=== PATIENT | male | born 1970 | race Hispanic/Latino ===

== ENCOUNTER 2019-09-09 21:20 | Emergency (ER) | payer OTHER, SELFPAY ==
[2019-09-10 14:02] LABS: SARS-CoV-2 MS2 Positive; SARS-CoV-2 N Gene Positive; SARS-CoV-2 S Gene Positive; SARS-CoV-2 orf1ab Positive
== END 2019-09-09 21:58 | disposition home or self-care (01) ==
LOC: ERS 21:20
DX: U07.1 COVID-19 (principal); R05 Cough; R09.81 Nasal congestion; R52 Pain, unspecified; R50.9 Fever, unspecified; E11.9 Type 2 diabetes mellitus without complications; I10 Essential (primary) hypertension
CPT/HCPCS: 87635; 87804; 99283; U0003

== ENCOUNTER 2019-09-30 14:54 | Emergency (ER) | payer OTHER, SELFPAY ==
[2019-10-01 15:39] LABS: SARS-CoV-2 MS2 Positive; SARS-CoV-2 N Gene Positive; SARS-CoV-2 S Gene Positive; SARS-CoV-2 orf1ab Positive
== END 2019-09-30 15:42 | disposition home or self-care (01) ==
LOC: ERS 14:54
DX: U07.1 COVID-19 (principal); E11.9 Type 2 diabetes mellitus without complications; I10 Essential (primary) hypertension
CPT/HCPCS: 87635; 99283; U0003

== ENCOUNTER 2020-10-21 22:43 | Emergency (ER) | payer OTHER, SELFPAY ==
[2020-10-21 23:07] LABS: Bilirubin Negative (Negative); Blood, Urine Negative (Negative); Clarity Clear (Clear); Glucose, Urine (Dipstick) Greater than 1000 mg/dL (Negative); Ketone, Urine 10 mg/dL (Negative); Leukocyte Negative Leu/uL (Negative); Nitrite Negative (Negative); Protein, Urine (Dipstick) Negative (Neg-Trace); Specific Gravity, Urine 1.035 (1.002-1.036); Urobilinogen Normal mg/dL (Less than 2)
== END 2020-10-22 00:55 | disposition home or self-care (01) ==
LOC: ERS 22:43
DX: B37.42 Candidal balanitis (principal); E11.9 Type 2 diabetes mellitus without complications; I10 Essential (primary) hypertension; E03.9 Hypothyroidism, unspecified; Z79.84 Long term (current) use of oral hypoglycemic drugs; Z79.899 Other long term (current) drug therapy
CPT/HCPCS: 36416; 81003; 99283